=== PATIENT | male | born 1965 | race African-American/Black ===

== ENCOUNTER 2020-03-10 09:47 | Inpatient (IN) | payer MEDICARE, MEDICAID ==
[~2020-03-10] VITALS: Ht 172.7 cm; Wt 108.9 kg
[2020-03-10] MEDS ORDERED: IPRATROPIUM BROMIDE (0.02%) 0.5MG/2.5ML NEB HHN STA (09:56)
[2020-03-10 10:25] LABS: BG BASE EXCESS -18.7 mmol/L (-2.0-2.0); BG CARBOXYHEMOGLOBIN 0.5 % (0.5-1.5); BG DEOXYHEMOGLOBIN 3.9 % (0.0-5.0); BG FRACTION INSPIRED OXYGEN 21; BG HCO3 ACT 8.1 mmol/L (22.0-26.0); BG METHEMOGLOBIN 0.3 % (0.0-1.5); BG OXYGEN SATURATION 96.1 % (92.0-98.5); BG OXYHEMOGLOBIN 95.3 % (94.0-97.0); BG PCO2 22.6 mmHg (35.0-45.0); BG PH 7.172 (7.350-7.450); BG PO2 105.9 mmHg (75.0-100.0); BG SAMPLE SITE RIGHT BRACHIAL; BG TOTAL HEMOGLOBIN 8.7 g/dL (12.0-18.0); BG VENT MODE ROOM AIR
[2020-03-10] MEDS ORDERED: SODIUM BICARBONATE 8.4% 1 MEQ/ML 50ML SYR IV ONE (10:30)
[2020-03-10] MEDS ORDERED: INSULIN REGULAR (HUMULIN R) 300UNITS/3ML IV ONE (10:30)
[2020-03-10] MEDS ORDERED: DEXTROSE 50% WATER 50ML SYRINGE IV ONE (10:30)
[2020-03-10] MEDS ORDERED: CALCIUM CHLORIDE 1GM/10ML SYR IV ONE (10:30)
[2020-03-10] MEDS ORDERED: LABETALOL 5MG/ML SYR 20 MG/4 ML SYRINGE IV ONE ×2 (10:45→13:00)
[2020-03-10 10:58] LABS: HEMATOCRIT. 25.8 % (42.0-52.0); HEMOGLOBIN. 9.2 g/dL (14.0-18.0); MEAN CORPUSCULAR VOLUME 84.8 fL (80.0-94.0); MEAN PLATELET VOLUME 9.6 fl (7.4-10.4); PLATELET 203 x1000/uL (130-400); RED BLOOD CELL COUNT 3.05 mill/uL (4.7-6.1); RED CELL DISTRIBUTION WIDTH 17.5 % (11.6-14.6)
[2020-03-10 11:04] LABS: CHLORIDE 109 mEq/L (98-107)
[2020-03-10 11:10] LABS: PHOSPHORUS 7.7 mg/dL (2.5-4.9)
[2020-03-10 11:37] LABS: PLATELET ESTIMATE NORMAL
[2020-03-10] MEDS ORDERED: LEVOFLOXACIN 500MG PREMIX 100 ML IV ONE (11:45)
[2020-03-10] MEDS ORDERED: ACETAMINOPHEN 325MG TABLET PO PRN (12:00)
[2020-03-10] MEDS ORDERED: CLONIDINE 0.1MG TABLET PO PRN (12:00)
[2020-03-10] MEDS ORDERED: MANNITOL 12.5G (25%) VIAL 50ML IV ONE ×2 (12:15→22:00)
[2020-03-10] MEDS: ALBUTEROL (0.083%) 2.5MG/3ML NEB HHN SCH ×2 (12:20→12:40)
[2020-03-10] MEDS ORDERED: HYDRALAZINE 20MG/ML VIAL IV NR (16:00)
[2020-03-10] MEDS: CALCIUM ACETATE 667MG CAPSULE PO SCH (17:30)
[2020-03-10] MEDS: OXYMETAZOLINE HCL NASAL SPRAY 15ML BOTHNSTRLS SCH (19:01)
[2020-03-10 21:10] VITALS: BP 180/92
[2020-03-10 22:00] VITALS: BP 165/89
[2020-03-11] VITALS (11 sets, daily range): BP systolic 133–184; BP diastolic 63–89
[2020-03-11] MEDS: AMLODIPINE 5MG TABLET PO SCH ×4 (01:30→20:32)
[2020-03-11] MEDS: HYDRALAZINE HCL 100MG TABLET PO SCH ×4 (01:30→22:21)
[2020-03-11] MEDS: CLONIDINE 0.1MG TABLET PO SCH ×4 (03:13→22:22)
[2020-03-11 06:21] LABS: PHOSPHORUS 5.7 mg/dL (2.5-4.9)
[2020-03-11] MEDS: CALCIUM ACETATE 667MG CAPSULE PO SCH ×3 (08:43→18:19)
[2020-03-11] MEDS: ONDANSETRON HCL 4MG/2ML INJ IV PRN (08:54)
[2020-03-11 09:09] LABS: EOSINOPHILS % 2.8 % (0.0-5.0); LYMPHOCYTES % 7.7 % (20.0-50.0); MEAN CORPUSCULAR HEMOGLOBIN 29.7 pg (28.0-32.0); MEAN CORPUSCULAR VOLUME 82.9 fL (80.0-94.0); MEAN PLATELET VOLUME 9.5 fl (7.4-10.4); MONOCYTES % 9.5 % (2.0-8.0); PLATELET 209 x1000/uL (130-400); RED BLOOD CELL COUNT 3.02 mill/uL (4.7-6.1); RED CELL DISTRIBUTION WIDTH 17.6 % (11.6-14.6)
[2020-03-11] MEDS: LOSARTAN POTASSIUM 25 MG TABLET PO SCH ×2 (13:11→20:31)
[2020-03-11] MEDS: OXYMETAZOLINE HCL NASAL SPRAY 15ML BOTHNSTRLS SCH ×2 (13:11→18:19)
[2020-03-11] MEDS: ASPIRIN 81MG EC TABLET PO SCH (13:11)
[2020-03-12] VITALS (12 sets, daily range): BP systolic 106–138; BP diastolic 38–71
[2020-03-12] MEDS: HYDRALAZINE HCL 100MG TABLET PO SCH ×2 (06:59→22:15)
[2020-03-12] MEDS: CLONIDINE 0.1MG TABLET PO SCH ×2 (06:59→22:15)
[2020-03-12] MEDS: OXYMETAZOLINE HCL NASAL SPRAY 15ML BOTHNSTRLS SCH ×2 (07:12→18:18)
[2020-03-12 07:29] LABS: HEMATOCRIT. 22.7 % (42.0-52.0); HEMOGLOBIN. 8.1 g/dL (14.0-18.0); MEAN CORPUSCULAR HEMOGLOBIN 29.8 pg (28.0-32.0); MEAN CORPUSCULAR VOLUME 83.2 fL (80.0-94.0); MEAN PLATELET VOLUME 9.7 fl (7.4-10.4); PLATELET 199 x1000/uL (130-400); RED BLOOD CELL COUNT 2.72 mill/uL (4.7-6.1); RED CELL DISTRIBUTION WIDTH 17.3 % (11.6-14.6)
[2020-03-12] MEDS: CALCIUM ACETATE 667MG CAPSULE PO SCH ×3 (08:27→18:19)
[2020-03-12] MEDS: LOSARTAN POTASSIUM 25 MG TABLET PO SCH ×2 (09:20→23:14)
[2020-03-12] MEDS: ASPIRIN 81MG EC TABLET PO SCH (09:20)
[2020-03-12] MEDS: AMLODIPINE 5MG TABLET PO SCH ×2 (09:21→23:14)
[2020-03-12 14:07] LABS: PLATELET ESTIMATE NORMAL
[2020-03-12] MEDS: ONDANSETRON HCL 4MG/2ML INJ IV PRN ×2 (15:32→22:16)
[2020-03-13] VITALS (13 sets, daily range): BP systolic 96–146; BP diastolic 51–74
[2020-03-13] MEDS: HYDRALAZINE HCL 100MG TABLET PO SCH ×4 (00:57→14:19)
[2020-03-13] MEDS: CLONIDINE 0.1MG TABLET PO SCH ×5 (00:57→23:57)
[2020-03-13] MEDS: ONDANSETRON HCL 4MG/2ML INJ IV PRN (03:26)
[2020-03-13] MEDS: OXYMETAZOLINE HCL NASAL SPRAY 15ML BOTHNSTRLS SCH ×2 (06:50→18:00)
[2020-03-13] MEDS: CALCIUM ACETATE 667MG CAPSULE PO SCH ×3 (06:55→17:59)
[2020-03-13] MEDS: LOSARTAN POTASSIUM 25 MG TABLET PO SCH ×2 (08:02→22:14)
[2020-03-13] MEDS: AMLODIPINE 5MG TABLET PO SCH ×2 (08:04→22:14)
[2020-03-13] MEDS: ASPIRIN 81MG EC TABLET PO SCH (08:05)
[2020-03-14] VITALS (12 sets, daily range): BP systolic 97–156; BP diastolic 43–78
[2020-03-14] MEDS: CLONIDINE 0.1MG TABLET PO SCH ×3 (06:00→22:00)
[2020-03-14] MEDS: HYDRALAZINE HCL 100MG TABLET PO SCH ×3 (06:33→22:00)
[2020-03-14] MEDS: CALCIUM ACETATE 667MG CAPSULE PO SCH ×3 (06:33→18:03)
[2020-03-14] MEDS: AMLODIPINE 5MG TABLET PO SCH ×2 (08:21→21:00)
[2020-03-14] MEDS: LOSARTAN POTASSIUM 25 MG TABLET PO SCH ×2 (08:21→21:00)
[2020-03-14] MEDS: ASPIRIN 81MG EC TABLET PO SCH (08:21)
[2020-03-14 12:00] LABS: HEPATITIS B SURFACE AB < 3.1 mIU/mL
[2020-03-14 12:11] LABS: HEPATITIS B SURFACE ANTIGEN NEGATIVE
[2020-03-14 12:40] LABS: HEPATITIS A AB IGM NEGATIVE (NEGATIVE)
[2020-03-14] MEDS ORDERED: IPRATROPIUM/ALBUTEROL 0.5-3(2.5)MG/3ML NEB HHN PRN (17:15)
[2020-03-15] VITALS (8 sets, daily range): BP systolic 116–142; BP diastolic 52–82
[2020-03-15] MEDS: HYDRALAZINE HCL 100MG TABLET PO SCH ×2 (06:00→14:00)
[2020-03-15] MEDS: CLONIDINE 0.1MG TABLET PO SCH ×2 (06:00→14:00)
[2020-03-15] MEDS: CALCIUM ACETATE 667MG CAPSULE PO SCH ×2 (08:52→12:20)
[2020-03-15] MEDS: ASPIRIN 81MG EC TABLET PO SCH (08:52)
[2020-03-15] MEDS: LOSARTAN POTASSIUM 25 MG TABLET PO SCH (08:52)
[2020-03-15] MEDS: AMLODIPINE 5MG TABLET PO SCH (08:52)
[2020-03-15] MEDS ORDERED: AMLODIPINE 10MG TABLET PO SCH (21:00)
== END 2020-03-15 18:09 | disposition home or self-care (01) | DRG 640 ==
LOC: ER 09:47 → EDBEDREQ 10:05 → 3WST 11:02 → EDBEDREQ 11:26 → EDBEDREQSVC 11:26 → ENRESERV 19:20
PROVIDERS: ADMIT Internal Medicine; ATTEND Internal Medicine
PROC: 5A1D70Z Performance of Urinary Filtration, Intermittent, Less than 6 Hours Per Day (ICD-10-PCS; 2020-03-10)
PROC: 5A1D70Z Performance of Urinary Filtration, Intermittent, Less than 6 Hours Per Day (ICD-10-PCS; principal; 2020-03-12)
PROC: 5A1D70Z Performance of Urinary Filtration, Intermittent, Less than 6 Hours Per Day (ICD-10-PCS; 2020-03-14)
DX: E87.70 Fluid overload, unspecified (principal); J96.00 Acute respiratory failure, unspecified whether with hypoxia or hypercapnia; N18.6 End stage renal disease; I50.30 Unspecified diastolic (congestive) heart failure; I13.2 Hypertensive heart and chronic kidney disease with heart failure and with stage 5 chronic kidney disease, or end stage renal disease; I16.0 Hypertensive urgency; E87.2 Acidosis; E87.5 Hyperkalemia; J45.909 Unspecified asthma, uncomplicated; E87.8 Other disorders of electrolyte and fluid balance, not elsewhere classified; D63.8 Anemia in other chronic diseases classified elsewhere; E78.5 Hyperlipidemia, unspecified; Z99.2 Dependence on renal dialysis; Z91.19 Patient's noncompliance with other medical treatment and regimen; Z79.899 Other long term (current) drug therapy
CPT/HCPCS: 36415; 36600; 71045; 80048; 80053; 82375; 82805; 83036; 83605; 83735; 84100; 84145; 84484; 85025; 86705; 86706; 86709; 86803; 87340; 93005; 93306; 94640; 97162; 97530; 99291; J0360; J1815; J1956; J2150; J2405; J3490